=== PATIENT | male | born 1950 | race Caucasian/White ===

== ENCOUNTER → 2019-06-21 | Day surgery (SDC) | payer MEDICARE ==
[~2019-06-21] MED LIST: LIDOCAINE 1% W/EPI 1:200,000 MPF 30ML SQ ONE
--- NOTE | 2019-06-23 10:52 | Operative Note ---
DATE OF SURGERY: 06/21/2019 PREOPERATIVE DIAGNOSIS: Trigger finger of the left middle finger. POSTOPERATIVE DIAGNOSIS: Trigger finger of the left middle finger. OPERATION: Trigger finger release, left middle finger. STAFF SURGEON: Reid Arguello MD ANESTHESIA: Local. PREPARATION: Chloraprep. INDIVIDUAL CONSIDERATIONS: None. PROCEDURE: The patient was taken to the operating room and placed supine on the operating room table. The left hand was prepped and draped in the usual fashion. The patient had 2% lidocaine with epinephrine infiltrated along the longitudinal wrist crease volarly. The limb was then elevated and tourniquet was inflated to 250 mmHg. The patient had an incision directly over the A1 martín volarly. Sharp dissection carried down through the skin. Blunt dissection carried down to the martín. After retracting bundles on either side, a john was made in the martín and it was released under direct view proximally and distally. I then had him flex his finger, and it would no longer trigger. Tourniquet was let down. Hemostasis was obtained with compression after irrigation. The skin was approximated with interrupted 4-0 nylon in a vertical mattress fashion. A sterile bulky compressive hand dressing was applied. The patient tolerated procedure well. Needle and sponge counts were correct. Estimated blood loss was minimal. The patient was taken back to recovery in good condition. There were no complications. [facility]ITAL[facility]ahlia
== END | disposition home or self-care (01) ==
LOC: SUR 12:10
PROVIDERS: ATTEND Orthopaedic Surgery
DX: M65.332 Trigger finger, left middle finger (principal)